=== PATIENT | male | born 1975 | race Caucasian/White ===

== ENCOUNTER 2021-06-09 17:59 | Inpatient (IN) | payer BC, SELFPAY ==
[2021-06-09] VITALS (8 sets, daily range): BP systolic 101–137; BP diastolic 75–82; PULSE 96–108; RESP 24–33; TEMP 37.8–38.1; O2SAT 80–95; BMI 27.8
--- NOTE | 2021-06-09 18:46 | XRR_ITS ---
PROCEDURE INFORMATION: Exam: XR Chest Exam date and time: 06/09/2021 6:46 PM Age: 46 years old Clinical indication: Dyspnea; Additional info: SOB TECHNIQUE: Imaging protocol: XR of the chest. Views: 1 view. COMPARISON: No relevant prior studies available. FINDINGS: Lungs: Patchy airspace opacities in the lung bases, right greater than left. Pleural spaces: Unremarkable. No pleural effusion. No pneumothorax. Heart/Mediastinum: Unremarkable. No cardiomegaly. Bones/joints: Unremarkable. XR/XR chest 1V portable [id number] IMPRESSION: Bibasilar pneumonia versus aspiration.
--- NOTE | 2021-06-09 18:46 | ECG_ITS ---
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 Measurements Intervals [place] Rate: 97 P: 25 FL: 132 QRS: 15 QRSD: 108 T: 18 QT: 344 QTc: 437 Interpretive Statements SINUS RHYTHM No previous ECG available for comparison Electronically Signed On 06-13-2021 9:56:45 CDT by Zari John M.D. [id number]
[2021-06-09] MEDS: dexamethasone 4 mg/mL INJ 6 MG IVP (19:15)
[2021-06-09 19:21] LABS: ABG PCO2 28.1 mmHg (35-45); ABG PH Result 7.54 (7.35-7.45); Arterial Blood Gas Hematocrit 42.7 % (42-52); Base Excess ABG 2.6 mmol/L (-2.0-2.0); Blood Gas Allen Test Pos; Blood Gas Operator Identificat CAK; Blood Gas Sample Site Radial, left; Blood Gas Sample Type Arterial; HCO3 ABG 24.1 mmol/L (22-26); Oxygen Device NRB; PO2 ABG 52.3 mmHg (80.0-100.0)
[2021-06-09 19:25] LABS: Hematocrit 40.3 % (42.0-52.0); Lymphocytes # 0.4 10^3/uL (0.8-4.8); Lymphocytes % 8.5 %; Mean Corpuscular HGB Conc 34.7 g/dL (30.0-36.0); Mean Corpuscular Hemoglobin 30.3 pg (28.0-34.0); Mean Corpuscular Volume 87.2 fL (80-94); Mean Platelet Volume 10.9 fL (7.4-10.4); Monocytes # 0.3 10^3/uL (0.2-0.9); Monocytes % 5.9 %; Neutrophils # 3.91 10^3/uL (1.8-7.7); Neutrophils % 85.2 %; Nucleated Red Blood Cells % 0 %; Platelet Count 240 10^3/cmm (130-400); Red Blood Count 4.62 10^6/uL (4.1-5.3); Red Cell Distribution Width 12.5 % (12.1-15.1); White Blood Count 4.6 10^3/uL (4.0-10.0)
[2021-06-09 19:41] LABS: D Dimer 0.85 ug/mIFEU (0-0.59)
[2021-06-09 19:44] LABS: Lactic Sepsis W/Reflex 1.1 mmol/L (0.5-2.2)
[2021-06-09 19:54] LABS: NT Pro B Type Natriuretic Pept 107 pg/mL (0-125); Procalcitonin 0.43 ng/mL (0-0.5)
[2021-06-09 19:58] LABS: Troponin T (5th) Once 10 ng/L (0-15)
[2021-06-09 20:05] LABS: Alanine Aminotransferase 70 U/L (0-41); Albumin Level 3.8 g/dL (3.5-5.2); Alkaline Phosphatase 108 IU/L (40-130); Anion Gap 18.3 (5-19); Aspartate Amino Transferase 106 U/L (0-40); Blood Urea Nitrogen 8 mg/dL (6-20); C Reactive Protein 256.7 mg/L (0.0-4.9); Calcium 8.1 mg/dL (8.5-10.5); Carbon Dioxide 25 mmol/L (22-29); Chloride 95 mmol/L (98-107); Globulin 2.7 g/dL (1.3-4.6); Glomerular Filtration Rate 122.5 mL/min (90-130); Glucose 102 mg/dL (65-115); Lactate Dehydrogenase 404 U/L (135-225); Osmolality Calculated 279 mOsm/kg (285-295); Potassium 3.3 mmol/L (3.5-5.1); Sodium 135 mmol/L (136-145); Total Bilirubin 0.4 mg/dL (0.15-1.2); Total Protein 6.5 g/dL (6.6-8.7)
--- NOTE | 2021-06-09 21:10 | ED_ITS ---
HPI - COVID General: Chief Complaint: COVID symptoms Stated Complaint: Covid + In Covid Room Time Seen by Provider: 06/09/21 18:16 Triage information: Has fever, cough or shortness of breath . No known COVID + exposure last 14 days History of Present Illness: MD complaint: known COVID positive Prior covid testing: yes, results known COVID 19 common symptoms: positive fever(s), chills, cough, dyspnea, fatigue, body aches, headache(s), nausea and diarrhea; negative vomiting COVID 19 other sytmptoms: negative chest pain Onset (ago): day(s) Severity: severe and slowly worsening Treatment prior to arrival: acetaminophen and ibuprofen COVID Results: No Data to Display Review of Systems Const: Reports: fever(s), chills, body aches and fatigue Card: Denies: chest pain Resp: Reports: dyspnea GI: Reports: nausea and diarrhea; Denies: vomiting Neuro: Reports: headache(s) Physical Exam Const: COMMON NORMALS: patient oriented x3 GENERAL APPEARANCE: cooperative, in distress and ill appearing NUTRITIONAL APPEARANCE: not overweight Eye: COMMON NORMALS: Equal, round and reactive pupils present and EOMs intact bilaterally PUPIL: Yes Equal, round and reactive pupils present Resp: COMMON NORMALS: clear to auscultation bilaterally EFFORT & INSPECTION: Yes tachypneic, Yes labored, Yes retractions and Yes uses accessory muscles AUSCULTATION: clear to auscultation bilaterally and diminished lung sounds Cardio: COMMON NORMALS: regular rhythm RATE: tachycardic RHYTHM: regular rhythm GI: COMMON NORMALS: Normal to inspection, nondistended, normoactive bowel sounds present and Soft to palpation PALPATION: Yes Soft to palpation Extremity: GENERAL: No edema Neuro: LYNNE COMA SCALE: document GCS findings Vilas coma scale eye opening: Spontaneous Vilas coma scale verbal response: Orientated Vilas coma scale motor response: Obey commands Lynne coma scale total score: 15 COMMON NORMALS: patient oriented x3 Course Vital Signs: Vital signs: Vital Signs Temperature 100.1 F H 06/10/21 00:00 Pulse Rate 96 06/10/21 00:00 Respiratory Rate 25 H 06/10/21 00:00 Blood Pressure 132/85 06/10/21 00:00 Pulse Oximetry 94 06/10/21 00:00 MDM - COVID MDM Narrative: Medical decision making narrative: 46-year-old male presents with low oxygen saturations requiring 12 L of nonrebreather oxygen to get his oxygenation into the 90s. He is mildly tachycardic. Normotensive. White blood cell count is 4.6. Potassium 3.3 which will be repleted. He is known positive for COVID-19. He will be admitted for antivirals, steroids, oxygen therapy support chest x-ray shows bilateral pneumonitis. Lab Data: Labs: Lab Results 06/09/21 06/09/21 06/09/21 Range/Units 19:09 19:15 19:15 WBC 4.6 (4.0-10.0) 10^3/ uL RBC 4.62 (4.1-5.3) 10^6/u L Hgb 14.0 (11.7-16.6) g/dL Hct 40.3 L (42.0-52.0) % MCV 87.2 (80-94) fL MCH 30.3 (28.0-34.0) pg MCHC 34.7 (30.0-36.0) g/dL RDW 12.5 (12.1-15.1) % Plt Count 240 (130-400) 10^3/c mm MPV 10.9 H (7.4-10.4) fL Neut % (Auto) 85.2 % Lymph % (Auto) 8.5 % [place] % (Auto) 5.9 % Eos % (Auto) 0.0 % Baso % (Auto) 0.0 % Neut # (Auto) 3.91 (1.8-7.7) 10^3/u L Lymph # (Auto) 0.4 L (0.8-4.8) 10^3/u L [place] # (Auto) 0.3 (0.2-0.9) 10^3/u L Eos # (Auto) 0.0 (0.0-0.8) 10^3/u L Baso # (Auto) 0.0 (0.0-0.1) 10^3/u L Nucleated RBC % (a uto) 0 % Nucleated RBCs # 0.0 /100WBC D-Dimer 0.85 H (0-0.59) ug/mIFE U Specimen Type Arterial Sample Site Radial, left ABG pH 7.54 H (7.35-7.45) ABG pCO2 28.1 L (35-45) mmHg ABG pO2 52.3 L (80.0-100.0) mmH g ABG HCO3 24.1 (22-26) mmol/L ABG Base Excess 2.6 H (-2.0-2.0) mmol/ L Marcelo Test Pos Hematocrit 42.7 (42-52) % O2 Delivery Device Nrb O2 Liters/Min 15.0 % Creative Services Coordinator ID Cak Sodium (136-145) mmol/L Potassium (3.5-5.1) mmol/L Chloride (98-107) mmol/L Carbon Dioxide (22-29) mmol/L Anion Gap (5-19) BUN (6-20) mg/dL Creatinine (0.7-1.2) mg/dL GFR Calculation (90-130) mL/min Glucose (65-115) mg/dL Calculated Osmolal ity (285-295) mOsm/k g Lactic Acid (0.5-2.2) mmol/L Calcium (8.5-10.5) mg/dL Total Bilirubin (0.15-1.2) mg/dL AST (0-40) U/L ALT (0-41) U/L Alkaline Phosphata se (40-130) IU/L Lactate Dehydrogen ase (135-225) U/L Troponin T Gen 5 n g/L (0-15) ng/L C-Reactive Protein (0.0-4.9) mg/L NT-Pro-B Natriuret Pep (0-125) pg/mL Total Protein (6.6-8.7) g/dL Albumin (3.5-5.2) g/dL Globulin (1.3-4.6) g/dL Procalcitonin (0-0.5) ng/mL 06/09/21 06/09/21 06/09/21 Range/Units 19:15 19:15 19:15 WBC (4.0-10.0) 10^3/ uL RBC (4.1-5.3) 10^6/u L Hgb (11.7-16.6) g/dL Hct (42.0-52.0) % MCV (80-94) fL MCH (28.0-34.0) pg MCHC (30.0-36.0) g/dL RDW (12.1-15.1) % Plt Count (130-400) 10^3/c mm MPV (7.4-10.4) fL Neut % (Auto) % Lymph % (Auto) % [place] % (Auto) % Eos % (Auto) % Baso % (Auto) % Neut # (Auto) (1.8-7.7) 10^3/u L Lymph # (Auto) (0.8-4.8) 10^3/u L [place] # (Auto) (0.2-0.9) 10^3/u L Eos # (Auto) (0.0-0.8) 10^3/u L Baso # (Auto) (0.0-0.1) 10^3/u L Nucleated RBC % (a uto) % Nucleated RBCs # /100WBC D-Dimer (0-0.59) ug/mIFE U Specimen Type Sample Site ABG pH (7.35-7.45) ABG pCO2 (35-45) mmHg ABG pO2 (80.0-100.0) mmH g ABG HCO3 (22-26) mmol/L ABG Base Excess (-2.0-2.0) mmol/ L Marcelo Test Hematocrit (42-52) % O2 Delivery Device O2 Liters/Min % Creative Services Coordinator ID Sodium 135 L (136-145) mmol/L Potassium 3.3 L (3.5-5.1) mmol/L Chloride 95 L (98-107) mmol/L Carbon Dioxide 25 (22-29) mmol/L Anion Gap 18.3 (5-19) BUN 8 (6-20) mg/dL Creatinine 0.7 (0.7-1.2) mg/dL GFR Calculation 122.5 (90-130) mL/min Glucose 102 (65-115) mg/dL Calculated Osmolal ity 279 L (285-295) mOsm/k g Lactic Acid 1.1 (0.5-2.2) mmol/L Calcium 8.1 L (8.5-10.5) mg/dL Total Bilirubin 0.4 (0.15-1.2) mg/dL AST 106 H (0-40) U/L ALT 70 H (0-41) U/L Alkaline Phosphata se 108 (40-130) IU/L Lactate Dehydrogen ase 404 H (135-225) U/L Troponin T Gen 5 n g/L 10 (0-15) ng/L C-Reactive Protein 256.7 H (0.0-4.9) mg/L NT-Pro-B Natriuret Pep 107 (0-125) pg/mL Total Protein 6.5 L (6.6-8.7) g/dL Albumin 3.8 (3.5-5.2) g/dL Globulin 2.7 (1.3-4.6) g/dL Procalcitonin 0.43 (0-0.5) ng/mL COVID Results: No Data to Display Discharge Plan Discharge Patient Disposition: Admitted As Inpatient Clinical Impression: Pneumonia due to 2019 novel coronavirus Respiratory failure Qualifiers: Chronicity: acute Respiratory failure complication: hypoxia Qualified Code(s): J96.01 - Acute respiratory failure with hypoxia Condition: Serious Coding Level of Care Code 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 Fwd Exam Detailed
[2021-06-09] MEDS: potassium chloride ER 20 mEq Tablet 40 MEQ PO (22:07)
[2021-06-09] MEDS: remdesivir 200 MG in sodium chloride 0.9% (100 ml) 100 ML 100 MG IV (22:37)
--- NOTE | 2021-06-09 23:02 | CTR_ITS ---
PROCEDURE INFORMATION: Exam: CTA Chest With Contrast Exam date and time: 06/09/2021 11:02 PM Age: 46 years old Clinical indication: Cough and fever and shortness of breath; Patient HX: Covid exposure - fever - cough - SOB; Additional info: Hypoxia TECHNIQUE: Imaging protocol: Computed tomographic angiography of the chest with contrast. 3D rendering (Not supervised by radiologist): MIP and/or 3D reconstructed images were created by the technologist. Radiation optimization: All CT scans at this facility use at least one of these dose optimization techniques: automated exposure control; mA and/or kV adjustment per patient size (includes targeted exams where dose is matched to clinical indication); or iterative reconstruction. Contrast material: OMNI 350; Contrast volume: 78 ml; Contrast route: INTRAVENOUS (IV); COMPARISON: CR (CHEST, ) 06/09/2021 7:28 PM RADIATION DOSE METRICS: Total DLP (mGy-cm): 603.91 FINDINGS: Pulmonary arteries: Normal. No pulmonary emboli. Aorta: Unremarkable. No aortic aneurysm. No aortic dissection. Lungs: Patchy peripheral ground-glass opacities in all lung lobes. Consolidation in the posterior right upper lobe and within both lower lobes. Pleural spaces: Unremarkable. No pneumothorax. No pleural effusion. Heart: Unremarkable. No cardiomegaly. No pericardial effusion. Mediastinal space: Hiatal hernia. Lymph nodes: Prominent mediastinal and hilar lymph nodes are most likely reactive. Liver: Small low-density lesion in the left liver lobe is too small to characterize but is most likely a cyst. No follow-up imaging is recommended. Bones/joints: Unremarkable. No acute fracture. Soft tissues: Unremarkable. CT/CT angio chest PE protcl [id number] IMPRESSION: 1. No evidence for pulmonary embolus. 2. Multilobar ground-glass opacities and consolidations. This pattern is typical of COVID-19 pneumonia but can also be seen with influenza and organizing pneumonia. Radiation Dose CTDIVOL = (mGy): DLP = 603.91 (mGy-cm)
[2021-06-09] MEDS: iohexol 350 mg/mL 100 mL Btl IV (23:30)
[2021-06-10] VITALS (80 sets, daily range): BP systolic 95–144; BP diastolic 61–95; PULSE 71–98; RESP 10–34; TEMP 36.7–38.5; O2SAT 85–99; BMI 28.1
[2021-06-10] MEDS: enoxaparin 40 mg/0.4 mL Syringe SUBCUT ×2 (00:45→22:45)
[2021-06-10] MEDS: famotidine 20 mg/2 mL INJ IVP ×3 (00:45→22:45)
--- NOTE | 2021-06-10 01:15 | PM.HP ---
Providers/Chief Complaint Admitting Physician: Daya Galvan MD Chief Complaint: Covid + In Covid Room History of Present Illness Andrew Fernandez is a 46 year old male tested positive for COVID coming in now ith shortness of breath, cough, worsening during the week 02 sat 70s upon arrival, now on 12lpm NC CT chest and x ray with B/L infiltrates suggestive of COVID pneumonia. No PE noted. Review of Systems General: Reports: 10 or more systems reviewed and unremarkable except in HPI and below Const: Denies: fever(s), chills or body aches Eyes: Denies: change in vision, blurry vision or photophobia ENMT: Reports: hoarseness; Denies: throat pain, enlarged tonsils, odynophagia or nasal congestion Card: Denies: chest pain, palpitations, irregular heart rhythm, edema, swelling of feet/ankles, lightheadedness, pre-syncope, dyspnea on exertion or orthopnea Resp: Denies: dyspnea, productive cough, non-productive cough, wheezing, stridor, pain on inspiration, change in phlegm color, hemoptysis or chest congestion GI: Denies: abdominal pain, nausea, vomiting, hematemesis, coffee ground emesis, dysphagia, heartburn, diarrhea, constipation, GI cramping, change in stool character, hematochezia or melena : Denies: flank pain, dysuria, urinary frequency, urinary urgency, urinary hesitancy or hematuria Musc: Denies: neck pain, back pain, extremity pain, joint swelling, joint warmth or deformity Neuro: Denies: headache(s), numbness in extremities, weakness in extremities, sensory changes, difficulty walking, frequent falls, dizziness, vertigo, behavioral changes, Slurred speech present or seizure-like activity Psych: Denies: anxiety, depression, suicidal ideation or homicidal ideation Endo: Denies: polyuria, polydipsia, tired all the time, cold intolerance or hot flashes Dariel/Lymph: Denies: easy bruising or easy bleeding Medications/Allergies Allergies Allergy/AdvReac Type Severity Reaction Status Date / Time No Known Allergies Allergy Verified 06/09/21 18:16 Vitals/I&O/Wt Last Vital Signs Temp 100.1 F H 06/10/21 00:00 Pulse 96 06/10/21 00:00 Resp 25 H 06/10/21 00:00 BP 132/85 06/10/21 00:00 Pulse Ox 94 06/10/21 00:00 Weight last 48 hrs Weight 90.718 kg Physical Exam Narrative: EXAM NARRATIVE: General: No acute distress,tachypnea+, AO x3 HEENT: PERRLA, pupils bilaterally equal and reactive, pallors not present Chest: Normal vesicular breath sounds, no added sounds, equal good air entry bilaterally CVS: S1-S2 regular, no murmurs, no tachycardia, no gallops, no rubs Abdomen: Soft, nontender, no organomegaly, bowel sounds present Neuro: No focal deficits, no facial deformity, AO x3, power 5/5 in all limbs Data : 06/09/21 19:15 06/09/21 19:15 Micro: Microbiology 06/09/21 19:55 Blood Culture - Preliminary Blood SPECIMEN COLLECTED 06/09/21 19:15 Blood Culture - Preliminary Blood SPECIMEN COLLECTED A&P Assessment and plan (1) Respiratory failure: Status: Acute Qualifiers: Chronicity: acute Respiratory failure complication: hypoxia Qualified Code(s): J96.01 - Acute respiratory failure with hypoxia (2) Pneumonia due to 2019 novel coronavirus: Status: Acute Additional A&P Information Remdisivir 200mg iv x 1 followed by 100mg iv daily dexamethasone 6mg IVP daily duoneb q6h, budesonide q12h empiric CTX and azithromycin Flutter valve/spirometer at bedside trend inflammatory markers including CRP, LDH, D dimer, Ferritin CTA PE to evalaute for PE negative for the same DVt ppx: lovenox PUD ppx: protonix Attestations Medical Necessity Statement*: >2midnight anticipated for above defined care Coding Level of Care Code 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
[2021-06-10] MEDS: acetaminophen 325 mg Tablet 650 MG PO (04:03)
[2021-06-10] MEDS: cefTRIAXone 1,000 MG in sodium chloride 0.9% (plus) 50 ML 100 MG IV (04:31)
[2021-06-10] MEDS: azithromycin 500 MG in sodium chloride 0.9% 250 ML 250 MG IV (04:59)
--- NOTE | 2021-06-10 05:49 | PC.NURSE ---
Patient arrived to ICU from ED at 0353. Non rebreather at 15L. Continue care
--- NOTE | 2021-06-10 06:02 | PM.CONSULT ---
Providers/Reason For Consult Consulting Physician/Specialty*: Pulmonary critical care medicine Reason for Consult*: Severe COVID-19 pneumonia Attending Physician: Daya Galvan MD History of Present Illness History of Present Illness Andrew Fernandez is a 46 year old male who presented to the hospital with severe shortness of breath. The patient is a known positive case for COVID-19. In the emergency department, the patient was found to be hypoxic requiring nonrebreather mask to achieve adequate oxygenation. He underwent a CT angiogram of his chest which did not reveal any pulmonary embolism however the patient has diffuse bilateral infiltrates including dense consolidative lesion in bilateral lower lobes. He has received dexamethasone and has been started on remdesivir. He is currently empirically covered with ceftriaxone and azithromycin. The patient has absolute lymphocyte count less than thousand, elevated inflammatory markers including CRP, LDH, D-dimer. His arterial blood gas revealed respiratory alkalosis with severe hypoxia on 15 L on breather mask. The patient was seen and examined in the ICU. He is on nonrebreather mask resting comfortably. Review of Systems Narrative: The patient complains of generalized fatigue and shortness of breath. He has cough with minimal sputum production. No nausea vomiting or diarrhea. Meds/Allergies Home Medications and Allergies Home Medications Medication Instructions Recorded Confirmed Last Taken Type acetaminophen [Tylenol] 325 mg PO QID PRN 06/10/21 06/10/21 Unknown History ascorbic acid (vitamin C) [Vitamin 500 mg PO DAILY 06/10/21 06/10/21 06/09/21 History C] elderberry fruit [Elderberry] 200 mg PO DAILY 06/10/21 06/10/21 06/09/21 History ibuprofen 200 mg PO Q6H PRN 06/10/21 06/10/21 Unknown History Allergies Allergy/AdvReac Type Severity Reaction Status Date / Time No Known Allergies Allergy Verified 06/09/21 18:16 Current Medications Current Medications Generic Name Dose Route Start Last Admin Trade Name Freq PRN Reason Stop Dose Admin Acetaminophen 650 mg 06/09/21 23:20 06/10/21 04:03 Acetaminophen 325 Mg Tablet PO 650 mg Q6H PRN Administration Mild/Mod Pain Or Temp >/= 101 Dexamethasone 6 mg 06/10/21 03:59 06/10/21 04:08 Dexamethasone 4 Mg/Ml Inj IVP Not Given Q24H [facility] Enoxaparin Sodium 40 mg 06/09/21 23:30 06/10/21 00:45 Enoxaparin 40 Mg/0.4 Ml Syringe SUBCUT 40 mg Q24H JOANIE Administration Famotidine 20 mg 06/09/21 23:30 06/10/21 00:45 Famotidine 20 Mg/2 Ml Inj IVP 20 mg Q12H JOANIE Administration Ceftriaxone Sodium 1,000 mg/ 50 mls @ 100 mls/hr 06/10/21 04:00 06/10/21 05:09 Sodium Chloride IV Infused Q24H JOANEI Infusion Protocol Azithromycin 500 mg/ Sodium 250 mls @ 250 mls/hr 06/10/21 04:30 06/10/21 04:59 Chloride IV 06/13/21 04:29 250 mls/hr Q24H JOANIE Administration Protocol Vitals/I&O/Wt Last Vital Signs Temp 101.3 F H 06/10/21 04:00 Pulse 80 06/10/21 05:45 Resp 26 H 06/10/21 05:45 BP 118/80 06/10/21 05:45 Pulse Ox 94 06/10/21 05:45 06/09/21 06/09/21 06/10/21 14:59 22:59 06:59 Intake Total 230 / 230 Balance 230 / 230 Weight last 48 hrs Weight 201 lb 9 oz Weight 201 lb 14.4 oz Weight 200 lb Data Labs: Other Labs: I have reviewed his laboratory, microbiologic and radiologic data. The patient has mild hypokalemia he has received potassium supplementation for that. His inflammatory markers are elevated. Micro: Micro: Microbiology 06/09/21 19:55 Blood Culture - Pr eliminary Blood [facility] 06/09/21 19:15 Blood Culture - Pr eliminary Blood [facility] Other Data: Attestation for Other Data: I personally reviewed and interpreted the following: Other data: Laboratory, microbiologic and radiologic data. A&P Assessment and plan (1) Pneumonia due to 2019 novel coronavirus: This is a 46-year-old young man without any significant past medical history who is presented with severe SARS-CoV-2 pneumonia. There is bilateral infiltrate on the CT angiogram of the chest including consolidative changes in bilateral lower lobes in addition to groundglass opacities in upper lobes. His inflammatory markers are elevated including laboratory values that are associated with disease progression and worse outcomes. He is absolutely lymphocyte count is less than thousand he has elevated LDH, CRP. The patient is now empirically covered with ceftriaxone and azithromycin. He is receiving remdesivir and low-dose dexamethasone daily. He is currently requiring 15 L nonrebreather mask to maintain adequate oxygenation. Given his level of hypoxia, elevated inflammatory markers, the patient will benefit from anti-IL-6 therapy. I am going to prescribe that for the patient. Status: Acute (2) Acute respiratory failure with hypoxia: Currently on nonrebreather mask. I will likely switch this to high flow nasal cannula which will provide assistance. Reducing work of breathing. He is on DuoNeb and Pulmicort nebulization. There is some data, budesonide nebulization may help patients with COVID-19 pneumonia. We will continue with that for now. The patient is on DVT prophylaxis with 40 mg of Lovenox. Status: Acute (3) Hypokalemia: Patient has received 60 mEq of potassium. 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
[2021-06-10 06:53] LABS: Hematocrit 39.4 % (42.0-52.0); Hemoglobin 13.4 g/dL (11.7-16.6); Lymphocytes # 0.4 10^3/uL (0.8-4.8); Lymphocytes % 10.6 %; Mean Corpuscular Hemoglobin 29.9 pg (28.0-34.0); Mean Corpuscular Volume 87.9 fL (80-94); Mean Platelet Volume 10.7 fL (7.4-10.4); Monocytes # 0.2 10^3/uL (0.2-0.9); Neutrophils # 3.06 10^3/uL (1.8-7.7); Neutrophils % 82.9 %; Nucleated Red Blood Cells % 0 %; Platelet Count 229 10^3/cmm (130-400); Red Blood Count 4.48 10^6/uL (4.1-5.3); Red Cell Distribution Width 12.6 % (12.1-15.1); White Blood Count 3.7 10^3/uL (4.0-10.0)
[2021-06-10 07:31] LABS: Alanine Aminotransferase 73 U/L (0-41); Albumin Level 3.2 g/dL (3.5-5.2); Alkaline Phosphatase 98 IU/L (40-130); Anion Gap 15.8 (5-19); Aspartate Amino Transferase 107 U/L (0-40); Blood Urea Nitrogen 9 mg/dL (6-20); Calcium 8.2 mg/dL (8.5-10.5); Carbon Dioxide 23 mmol/L (22-29); Chloride 100 mmol/L (98-107); Globulin 3.6 g/dL (1.3-4.6); Glomerular Filtration Rate 122.5 mL/min (90-130); Glucose 124 mg/dL (65-115); Osmolality Calculated 280 mOsm/kg (285-295); Potassium 3.8 mmol/L (3.5-5.1); Sodium 135 mmol/L (136-145); Total Bilirubin 0.3 mg/dL (0.15-1.2); Total Protein 6.8 g/dL (6.6-8.7)
[2021-06-10 07:33] LABS: C Reactive Protein 227.7 mg/L (0.0-4.9)
[2021-06-10] MEDS: ipratropium-albuterol 3 mL Neb INHALATION ×3 (08:15→20:05)
[2021-06-10] MEDS: budesonide 0.5 mg/2 mL Neb INHALATION ×2 (08:15→19:47)
[2021-06-10] MEDS: potassium chloride ER 20 mEq Tablet PO (08:53)
--- NOTE | 2021-06-10 15:12 | PM.PN ---
Subjective Subjective: Interval history: Patient was examined this afternoon, he sitting up in bed, on 45 L, 85% FiO2, he denies a history of smoking, no history of lung disease, no history of heart disease, no history of strokes, he is 46, he tells me that he has 3 children, oldest of being 17, he tells me that the Covid really hit him hard, he is feeling quite short of breath, no chest pain, no lightheadedness, dizziness Vitals/I&O/Wt Last Vital Signs Temp 98.1 F 06/10/21 07:00 Pulse 97 06/10/21 14:49 Resp 18 06/10/21 14:00 BP 128/78 06/10/21 14:00 Pulse Ox 90 06/10/21 14:00 06/10/21 06/10/21 06/10/21 06:59 14:59 22:59 Intake Total 480 / 480 396.5 / 396.5 Output Total 1000 / 1000 Balance 480 / 480 -603.5 / -603.5 Weight last 48 hrs Weight 91.427 kg Weight 91.58 kg Weight 90.718 kg Data : 06/10/21 06:40 06/10/21 06:40 Micro: Microbiology 06/09/21 19:55 Blood Culture - Preliminary Blood SPECIMEN COLLECTED 06/09/21 19:15 Blood Culture - Preliminary Blood SPECIMEN COLLECTED A&P Assessment and plan (1) Respiratory failure: Status: Acute Qualifiers: Chronicity: acute Respiratory failure complication: hypoxia Qualified Code(s): J96.01 - Acute respiratory failure with hypoxia (2) Pneumonia due to 2019 novel coronavirus: Status: Acute Additional A&P Information Remdisivir 200mg iv x 1 followed by 100mg iv daily dexamethasone 6mg IVP daily duoneb q6h, budesonide q12h empiric CTX and azithromycin Flutter valve/spirometer at bedside trend inflammatory markers including CRP, LDH, D dimer, Ferritin CTA PE to evalaute for PE negative for the same Patient will discuss with mom and his family friend to discuss, to determine who will be his DPOA or who will make decisions for him if he cannot as his 3 children are under the age of 18 DVt ppx: lovenox PUD ppx: protonix Attestations Medical Necessity Statement*: Patient requires hospitalization due to acute respiratory failure secondary COVID-19 pneumonia Coding Level of Care Code 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
[2021-06-10] MEDS: remdesivir 100 MG in sodium chloride 0.9% (100 ml) 100 ML IV (18:57)
[2021-06-11] VITALS (78 sets, daily range): BP systolic 95–135; BP diastolic 60–79; PULSE 55–103; RESP 15–36; TEMP 36.4–37.3; O2SAT 88–99; BMI 28.0
[2021-06-11] MEDS: ipratropium-albuterol 3 mL Neb INHALATION ×4 (03:01→20:56)
[2021-06-11] MEDS: dexamethasone 4 mg/mL INJ 6 MG IVP (03:23)
[2021-06-11] MEDS: cefTRIAXone 1,000 MG in sodium chloride 0.9% (plus) 50 ML 100 MG IV (03:23)
[2021-06-11] MEDS: azithromycin 500 MG in sodium chloride 0.9% 250 ML 250 MG IV (04:02)
[2021-06-11 04:57] LABS: ABG PCO2 34.8 mmHg (35-45); ABG PH Result 7.46 (7.35-7.45); Base Excess ABG 1.1 mmol/L (-2.0-2.0); Blood Gas Allen Test Pos; Blood Gas Operator Identificat JB; Blood Gas Sample Site Radial, left; Blood Gas Sample Type Arterial; HCO3 ABG 24.6 mmol/L (22-26); Oxygen Device HAG; PO2 ABG 76.4 mmHg (80.0-100.0)
[2021-06-11 06:25] LABS: Basophils % 0.3 %; Hematocrit 38.5 % (42.0-52.0); Hemoglobin 12.9 g/dL (11.7-16.6); Lymphocytes # 0.4 10^3/uL (0.8-4.8); Lymphocytes % 10.7 %; Mean Corpuscular HGB Conc 33.5 g/dL (30.0-36.0); Mean Corpuscular Hemoglobin 29.7 pg (28.0-34.0); Mean Corpuscular Volume 88.5 fL (80-94); Monocytes # 0.3 10^3/uL (0.2-0.9); Monocytes % 9.9 %; Neutrophils # 2.63 10^3/uL (1.8-7.7); Neutrophils % 78.5 %; Nucleated Red Blood Cells % 0 %; Platelet Count 310 10^3/cmm (130-400); Red Blood Count 4.35 10^6/uL (4.1-5.3); White Blood Count 3.4 10^3/uL (4.0-10.0)
[2021-06-11 06:31] LABS: Lactate (Lactic Acid level) 2.6 mmol/L (0.5-2.2)
[2021-06-11 06:40] LABS: INR 0.96 (0.8-1.2)
[2021-06-11 06:56] LABS: NT Pro B Type Natriuretic Pept 128 pg/mL (0-125); Procalcitonin 0.45 ng/mL (0-0.5)
--- NOTE | 2021-06-11 07:00 | XRR_ITS ---
PROCEDURE INFORMATION: Exam: XR Chest Exam date and time: 06/11/2021 7:00 AM Age: 46 years old Clinical indication: Dyspnea; Additional info: SOB TECHNIQUE: Imaging protocol: XR of the chest. Views: 1 view. COMPARISON: CR (CHEST, ) 06/09/2021 7:28 PM FINDINGS: Lungs: Asymmetric bibasilar airspace disease, which has mildly worsened when compared to the. Study. Pleural spaces: No significant pleural effusion. Heart/Mediastinum: No cardiomegaly. Bones/joints: Unremarkable. XR/XR chest 1V portable [id number] IMPRESSION: Asymmetric bibasilar airspace disease, which has mildly worsened when compared to the. Study.
[2021-06-11 07:04] LABS: Alanine Aminotransferase 93 U/L (0-41); Albumin Level 3.1 g/dL (3.5-5.2); Alkaline Phosphatase 90 IU/L (40-130); Anion Gap 15.7 (5-19); Aspartate Amino Transferase 125 U/L (0-40); Blood Urea Nitrogen 14 mg/dL (6-20); C Reactive Protein 87.2 mg/L (0.0-4.9); Calcium 8.2 mg/dL (8.5-10.5); Carbon Dioxide 22 mmol/L (22-29); Chloride 104 mmol/L (98-107); Globulin 3.3 g/dL (1.3-4.6); Glomerular Filtration Rate 122.5 mL/min (90-130); Glucose 128 mg/dL (65-115); Magnesium 2.1 mg/dL (1.7-2.3); Osmolality Calculated 288 mOsm/kg (285-295); Phosphorus 2.6 mg/dL (2.5-4.5); Potassium 3.7 mmol/L (3.5-5.1); Sodium 138 mmol/L (136-145); Total Bilirubin 0.2 mg/dL (0.15-1.2); Total Protein 6.4 g/dL (6.6-8.7)
[2021-06-11 07:07] LABS: Creatine Phosphokinase 67 U/L (39-308)
--- NOTE | 2021-06-11 07:14 | P.PN_ITS ---
Subjective Subjective: Interval history: The patient was seen and examined in the ICU. He had an uneventful night. The patient has been doing fairly well. He has been self proning. His oxygen requirement is coming down. Currently the patient is on an FiO2 of 65% his sats been 97% this morning. Chest x-ray from this morning revealed bilateral infiltrate. The patient has evidence of dense consolidation in the right lower lobe. Medications: Reviewed: Yes Vitals/I&O/Wt Last Vital Signs Temp 98.7 F 06/11/21 06:00 Pulse 95 06/11/21 06:00 Resp 25 H 06/11/21 06:00 BP 119/72 06/11/21 06:00 Pulse Ox 94 06/11/21 06:00 06/10/21 06/11/21 06/11/21 22:59 06:59 14:59 Intake Total 580 / 976.5 50 / 1026.5 Output Total 850 / 1850 Balance -270 / -873.5 50 / -823.5 Weight last 48 hrs Weight 201 lb 9 oz Weight 201 lb 9 oz Weight 201 lb 14.4 oz Weight 200 lb Physical Exam 2 Narrative: EXAM NARRATIVE: General: Patient is awake alert and oriented, in no distress Neck: No JVD, no cervical or supraclavicular lymphadenopathy Respiratory: Auscultation: Reduced breath sound bilaterally, increased vocal resonance bilaterally, especially in the posterior lateral chest, no wheezing or rhonchi Cardiovascular: Regular rate and rhythm, S1-S2 present, no murmur, no peripheral edema. Abdomen: Soft, nontender, nondistended, positive bowel sound Musculoskeletal: No obvious joint deformity Skin: No rash Neuro: Mental status is normal, no gross cranial nerve deficit, normal motor and coordination. Data : 06/11/21 05:26 06/11/21 05:26 Micro: Microbiology 06/09/21 19:55 Blood Culture - Preliminary Blood NEGATIVE TO DATE 06/09/21 19:15 Blood Culture - Preliminary Blood NEGATIVE TO DATE Attestation for Other Data: I personally reviewed and interpreted the following: Other data: I have reviewed his laboratory, microbiologic and radiologic data A&P Assessment and plan (1) Pneumonia due to 2019 novel coronavirus: This is a 46-year-old young man without any significant past medical history who is presented with severe SARS-CoV-2 pneumonia. There is bilateral infiltrate on the CT angiogram of the chest including consolidative changes in bilateral lower lobes in addition to groundglass opacities in upper lobes. His inflammatory markers are elevated including laboratory values that are associated with disease progression and worse outcomes. He is absolutely lymphocyte count is less than thousand he has elevated LDH, CRP. The patient is now empirically covered with ceftriaxone and azithromycin. He is receiving remdesivir and low-dose dexamethasone daily. He has received Tocilizumab on 06/10/ 06/10/21 His oxygen requirement is slowly coming down. I am hoping to transfer the patient out to the floor later today or tomorrow. Status: Acute (2) Acute respiratory failure with hypoxia: He is on DuoNeb and Pulmicort nebulization. There is some data, budesonide nebulization may help patients with COVID-19 pneumonia. We will continue with that for now. The patient is on DVT prophylaxis with 40 mg of Lovenox. Status: Acute (3) Hypokalemia: Resolved Status: Acute Attestations Medical Necessity Statement*: Will defer to the primary team Coding Level of Care Code Acute Respiratory Services Manager for [facility] Diagnoses Pneumonia due to 2019 novel coronavirus U07.1; J12.82 Acute respiratory failure with hypoxia J96.01 Hypokalemia E87.6 Time Spent (min) 33
[2021-06-11] MEDS: budesonide 0.5 mg/2 mL Neb INHALATION ×2 (08:22→20:56)
--- NOTE | 2021-06-11 09:34 | PC.CHAP ---
Pastoral Care Encounter/Spiritual Assessment Type of Contact [] Declined barrelhead inspector visit [] Patient/Family/Request visit [] Outpatient visit [] Follow-up visit [] Physician referral [] Code/Alert [x] Routine visit [] Staff referral [] Actively dying [] Patient sleeping [] Family support [] [] Out of room [] Palliative care [] [] Receiving care in room [] Pre-surgical visit [] Trauma [] Long length of stay [x] ICU visit [] Other: Relational/Emotional Strength [] Patient feels connected with others/family/visitors/staff [] Distress [] Loneliness/isolation [] Abandonment Spirituality of Patient [] Person of Lana [] Attends Hoahaoism of their Lana [] Believes in Prayer [] Reads Bible or Methodist materials [] There are Spiritual issues to be addressed Employee Relations Advisor Interventions [x] Prayer [] Active listening [] Non-anxious presence [] Spiritual/emotional support [] Crisis/trauma care [] Spiritual counseling [] Bereavement support [] Provided bereavement packet [] Provided Bible/devotional materials [] Provided toy/stuffed animal, coloring book to patient or family member [] Provided Communion [] Anointing/[place] [] Salvation [x] Completed spiritual assessment [] Other: Impact on Illness or Injury [] Angry [] Fearful [] Anxious [] Often cries [] Exhaustion [] Unable to work [] Unable to attend tenriism [] Unable to walk/stand [] Unable to read [] Unable to drive [] Unable to eat/drink [] Unable to sleep [] Unable to be with family [] Patient intubated [] Other: Summary Time spent with patient
[2021-06-11] MEDS: famotidine 20 mg/2 mL INJ IVP ×2 (11:54→23:34)
--- NOTE | 2021-06-11 11:59 | PC.NURSE ---
Prone Patient educated on proning. Patient doing very well in prone position. HFNC 45L 55%, down from 45L 85% this morning.
--- NOTE | 2021-06-11 12:47 | PM.PN ---
Subjective Subjective: Interval history: Patient was examined this morning he is lying prone, he tells me that he is breathing better, no fevers overnight, no nausea, no vomiting, no chest pain, no shortness of breath, Vitals/I&O/Wt Last Vital Signs Temp 99.0 F 06/11/21 08:00 Pulse 72 06/11/21 08:28 Resp 24 H 06/11/21 08:28 BP 104/60 06/11/21 07:00 Pulse Ox 98 06/11/21 08:28 06/10/21 06/11/21 06/11/21 22:59 06:59 14:59 Intake Total 580 / 976.5 50 / 1026.5 490 / 490 Output Total 850 / 1850 500 / 500 Balance -270 / -873.5 50 / -823.5 -10 / -10 Weight last 48 hrs Weight 91.427 kg Weight 91.427 kg Weight 91.58 kg Weight 90.718 kg Physical Exam Const: COMMON NORMALS: no acute distress and patient oriented x3 Resp: COMMON NORMALS: normal respiratory effort, No retractions and No use of accessory muscles AUSCULTATION: diminished lung sounds diffuse Cardio: COMMON NORMALS: regular rate, regular rhythm, S1 normal heart sound present and S2 normal heart sound present RATE: regular rate RHYTHM: regular rhythm HEART SOUNDS: S1 normal heart sound present and S2 normal heart sound present GI: COMMON NORMALS: Normal to inspection, nondistended, normoactive bowel sounds present, Soft to palpation and non-tender PALPATION: Yes Soft to palpation Extremity: COMMON NORMALS: no pedal edema Neuro: COMMON NORMALS: patient oriented x3 Psych: COMMON NORMALS: mental status grossly normal Data : 06/11/21 05:26 06/11/21 05:26 Micro: Microbiology 06/09/21 19:55 Blood Culture - Preliminary Blood NEGATIVE TO DATE 06/09/21 19:15 Blood Culture - Preliminary Blood NEGATIVE TO DATE A&P Assessment and plan (1) Respiratory failure: Status: Acute Qualifiers: Chronicity: acute Respiratory failure complication: hypoxia Qualified Code(s): J96.01 - Acute respiratory failure with hypoxia (2) Pneumonia due to 2019 novel coronavirus: Status: Acute Additional A&P Information Remdisivir 200mg iv x 1 followed by 100mg iv daily Status post 1 dose of tocilizumab 06/10/2021 dexamethasone 6mg IVP daily duoneb q6h, budesonide q12h Continue high flow, wean as tolerated empiric CTX and azithromycin Flutter valve/spirometer at bedside trend inflammatory markers including CRP, LDH, D dimer, Ferritin CTA PE to evalaute for PE negative for the same Encourage prone positioning, pulmonary toilet Patient's decision-maker is his friend, Jajaryan Rose Plan for today, continue Decadron, nausea, antibiotics, de-escalate to Covid unit DVt ppx: lovenox PUD ppx: protonix Attestations Medical Necessity Statement*: Patient requires hospitalization due to COVID-19 pneumonia Coding Level of Care Code Acute Bitumastic Applier for [facility] Fwd Diagnoses Respiratory failure J96.01 Chronicity: acute Respiratory failure complication: hypoxia Pneumonia due to 2019 novel coronavirus U07.1; J12.82
--- NOTE | 2021-06-11 13:50 | PC.NURSE ---
Report called to 2AWhitley RN, no further questions. Patient placed on 15L non-rebreather and transferred to 2A via bed, belongings with patient. Family updated on status and transfer. Patient AAOx4, VSS on 15L NRB.
[2021-06-11] MEDS: remdesivir 100 MG in sodium chloride 0.9% (100 ml) 100 ML IV (18:44)
[2021-06-11] MEDS: enoxaparin 40 mg/0.4 mL Syringe SUBCUT (23:34)
[2021-06-12] VITALS (16 sets, daily range): BP systolic 108–136; BP diastolic 66–80; PULSE 67–94; RESP 15–22; TEMP 36.4–36.7; O2SAT 89–98
[2021-06-12] MEDS: ipratropium-albuterol 3 mL Neb INHALATION ×4 (03:29→20:09)
[2021-06-12] MEDS: cefTRIAXone 1,000 MG in sodium chloride 0.9% (plus) 50 ML 100 MG IV (04:08)
[2021-06-12] MEDS: dexamethasone 4 mg/mL INJ 6 MG IVP (04:09)
[2021-06-12] MEDS: azithromycin 500 MG in sodium chloride 0.9% 250 ML 250 MG IV (05:20)
--- NOTE | 2021-06-12 07:21 | PC.NURSE ---
Patient remains in bed, prones and supine himself. Remains on HHF 45L/55%. Nil distress noted. Labs taken this am. Observation continues.
[2021-06-12 07:40] LABS: Hematocrit 39.9 % (42.0-52.0); Hemoglobin 13.1 g/dL (11.7-16.6); Lymphocytes # 0.5 10^3/uL (0.8-4.8); Lymphocytes % 13.1 %; Mean Corpuscular HGB Conc 32.8 g/dL (30.0-36.0); Mean Corpuscular Hemoglobin 29.6 pg (28.0-34.0); Mean Corpuscular Volume 90.3 fL (80-94); Mean Platelet Volume 10.8 fL (7.4-10.4); Monocytes # 0.4 10^3/uL (0.2-0.9); Monocytes % 12.2 %; Neutrophils % 73.8 %; Nucleated Red Blood Cells % 0 %; Platelet Count 357 10^3/cmm (130-400); Red Blood Count 4.42 10^6/uL (4.1-5.3); Red Cell Distribution Width 13.2 % (12.1-15.1); White Blood Count 3.5 10^3/uL (4.0-10.0)
[2021-06-12 08:06] LABS: Alanine Aminotransferase 205 U/L (0-41); Albumin Level 3.5 g/dL (3.5-5.2); Alkaline Phosphatase 98 IU/L (40-130); Anion Gap 16.2 (5-19); Aspartate Amino Transferase 242 U/L (0-40); Blood Urea Nitrogen 15 mg/dL (6-20); Calcium 8.7 mg/dL (8.5-10.5); Carbon Dioxide 25 mmol/L (22-29); Chloride 102 mmol/L (98-107); Globulin 3.2 g/dL (1.3-4.6); Glomerular Filtration Rate 122.5 mL/min (90-130); Glucose 98 mg/dL (65-115); Magnesium 2.1 mg/dL (1.7-2.3); Osmolality Calculated 289 mOsm/kg (285-295); Phosphorus 3.1 mg/dL (2.5-4.5); Potassium 4.2 mmol/L (3.5-5.1); Sodium 139 mmol/L (136-145); Total Bilirubin 0.3 mg/dL (0.15-1.2); Total Protein 6.7 g/dL (6.6-8.7)
[2021-06-12 08:17] LABS: Slide Review Slide Review Perform
[2021-06-12] MEDS: budesonide 0.5 mg/2 mL Neb INHALATION ×2 (08:40→19:48)
--- NOTE | 2021-06-12 09:52 | PC.CHAP ---
Pastoral Care Encounter/Spiritual Assessment Type of Contact [] Declined power marketer visit [] Patient/Family/Request visit [] Outpatient visit [] Follow-up visit [] Physician referral [] Code/Alert [x] Routine visit [] Staff referral [] Actively dying [x] Patient sleeping [] Family support [] [] Out of room [] Palliative care [] [] Receiving care in room [] Pre-surgical visit [] Trauma [] Long length of stay [] ICU visit [x] Other:oxygen Relational/Emotional Strength [] Patient feels connected with others/family/visitors/staff [] Distress [] Loneliness/isolation [] Abandonment Spirituality of Patient [] Person of Lana [] Attends Catholic of their Lana [] Believes in Prayer [] Reads Bible or Confucianist materials [] There are Spiritual issues to be addressed Automotive Refinisher Interventions [x] Prayer [] Active listening [] Non-anxious presence [] Spiritual/emotional support [] Crisis/trauma care [] Spiritual counseling [] Bereavement support [] Provided bereavement packet [] Provided Bible/devotional materials [] Provided toy/stuffed animal, coloring book to patient or family member [] Provided Communion [] Anointing/[place] [] Salvation [x] Completed spiritual assessment [] Other: Impact on Illness or Injury [] Angry [] Fearful [] Anxious [] Often cries [] Exhaustion [] Unable to work [] Unable to attend tenriism [] Unable to walk/stand [] Unable to read [] Unable to drive [] Unable to eat/drink [] Unable to sleep [] Unable to be with family [] Patient intubated [] Other: Summary Time spent with patient
[2021-06-12] MEDS: FUROsemide 10 mg/mL SDV 2mL 20 MG IVP (12:16)
[2021-06-12] MEDS: famotidine 20 mg/2 mL INJ IVP ×2 (12:16→22:44)
--- NOTE | 2021-06-12 12:51 | PC.NURSE ---
patients friend Willard Fernandez called for update. updated given on patient condition and oxygen %
--- NOTE | 2021-06-12 13:37 | PM.PN ---
Subjective Subjective: Interval history: Patient was seen this morning, he is a bit anxious, but tells me that overall he is doing better, has intermittent episodes of shortness of breath, he is down to 45 L 55% FiO2 Vitals/I&O/Wt Last Vital Signs Temp 97.5 F L 06/12/21 12:00 Pulse 68 06/12/21 12:00 Resp 18 06/12/21 12:00 BP 108/66 06/12/21 12:00 Pulse Ox 91 06/12/21 12:00 06/11/21 06/12/21 06/12/21 22:59 06:59 14:59 Intake Total 220 / 710 620 / 1330 Output Total 280 / 780 Balance 220 / 210 340 / 550 Weight last 48 hrs Weight 96.162 kg Weight 91.427 kg Physical Exam Const: COMMON NORMALS: no acute distress and patient oriented x3 Resp: COMMON NORMALS: normal respiratory effort, No retractions, No use of accessory muscles and clear to auscultation bilaterally AUSCULTATION: clear to auscultation bilaterally Cardio: COMMON NORMALS: regular rate, regular rhythm, S1 normal heart sound present and S2 normal heart sound present RATE: regular rate RHYTHM: regular rhythm HEART SOUNDS: S1 normal heart sound present and S2 normal heart sound present GI: COMMON NORMALS: Normal to inspection, nondistended, normoactive bowel sounds present, Soft to palpation and non-tender PALPATION: Yes Soft to palpation Extremity: COMMON NORMALS: no pedal edema Neuro: COMMON NORMALS: patient oriented x3 Psych: COMMON NORMALS: mental status grossly normal Data : 06/12/21 06:18 06/12/21 06:18 A&P Assessment and plan (1) Respiratory failure: Status: Acute Qualifiers: Chronicity: acute Respiratory failure complication: hypoxia Qualified Code(s): J96.01 - Acute respiratory failure with hypoxia (2) Pneumonia due to 2019 novel coronavirus: Status: Acute Additional A&P Information Remdisivir 200mg iv x 1 followed by 100mg iv daily Status post 1 dose of tocilizumab 06/10/2021 dexamethasone 6mg IVP daily duoneb q6h, budesonide q12h Continue high flow, wean as tolerated empiric CTX and azithromycin Flutter valve/spirometer at bedside trend inflammatory markers including CRP, LDH, D dimer, Ferritin CTA PE to evalaute for PE negative for the same Encourage prone positioning, pulmonary toilet Klonopin as needed for anxiety Patient's decision-maker is his friend, Jaja Rose Plan for today, continue Decadron, remdesivir, Klonopin for anxiety, continue to clinically monitor DVt ppx: lovenox PUD ppx: protonix Attestations Medical Necessity Statement*: Patient requires hospitalization due to COVID-19 pneumonia Coding Level of Care Code Acute Steam Generating Powerplant Mechanic for [facility] Diagnoses Respiratory failure J96.01 Chronicity: acute Respiratory failure complication: hypoxia Pneumonia due to 2019 novel coronavirus U07.1; J12.82
--- NOTE | 2021-06-12 16:21 | PC.NURSE ---
Rounding Note Pt using IS and performing bed exercises.
[2021-06-12] MEDS: remdesivir 100 MG in sodium chloride 0.9% (100 ml) 100 ML IV (17:35)
--- NOTE | 2021-06-12 18:39 | PC.NURSE ---
Pt has rested in bed and sat on side of bed throughout shift. Maintaining 90% oxygen saturations on 45 L 50% heated high flow. No needs at this time.
[2021-06-12] MEDS: enoxaparin 40 mg/0.4 mL Syringe SUBCUT (22:44)
[2021-06-13] VITALS (17 sets, daily range): BP systolic 122–144; BP diastolic 62–84; PULSE 67–100; RESP 15–22; TEMP 36.5–36.8; O2SAT 91–98
[2021-06-13] MEDS: cefTRIAXone 1,000 MG in sodium chloride 0.9% (plus) 50 ML 100 MG IV (03:28)
[2021-06-13] MEDS: dexamethasone 4 mg/mL INJ 6 MG IVP (03:28)
[2021-06-13] MEDS: ipratropium-albuterol 3 mL Neb INHALATION ×4 (03:44→20:04)
[2021-06-13 07:20] LABS: Basophils % 0.2 %; Hematocrit 40.4 % (42.0-52.0); Hemoglobin 13.4 g/dL (11.7-16.6); Lymphocytes # 0.6 10^3/uL (0.8-4.8); Mean Corpuscular HGB Conc 33.2 g/dL (30.0-36.0); Mean Corpuscular Hemoglobin 29.8 pg (28.0-34.0); Mean Corpuscular Volume 89.8 fL (80-94); Mean Platelet Volume 10.8 fL (7.4-10.4); Monocytes # 0.5 10^3/uL (0.2-0.9); Neutrophils # 2.95 10^3/uL (1.8-7.7); Neutrophils % 71.1 %; Nucleated Red Blood Cells % 0 %; Platelet Count 389 10^3/cmm (130-400); Red Cell Distribution Width 13.2 % (12.1-15.1); White Blood Count 4.2 10^3/uL (4.0-10.0)
[2021-06-13 07:58] LABS: Alanine Aminotransferase 248 U/L (0-41); Albumin Level 3.3 g/dL (3.5-5.2); Alkaline Phosphatase 99 IU/L (40-130); Anion Gap 19.2 (5-19); Aspartate Amino Transferase 175 U/L (0-40); Blood Urea Nitrogen 18 mg/dL (6-20); Calcium 8.6 mg/dL (8.5-10.5); Carbon Dioxide 23 mmol/L (22-29); Chloride 101 mmol/L (98-107); Globulin 3.4 g/dL (1.3-4.6); Glomerular Filtration Rate 122.5 mL/min (90-130); Glucose 112 mg/dL (65-115); Magnesium 2.1 mg/dL (1.7-2.3); Osmolality Calculated 291 mOsm/kg (285-295); Phosphorus 3.4 mg/dL (2.5-4.5); Potassium 4.2 mmol/L (3.5-5.1); Sodium 139 mmol/L (136-145); Total Bilirubin 0.3 mg/dL (0.15-1.2); Total Protein 6.7 g/dL (6.6-8.7)
[2021-06-13 08:37] LABS: Slide Review Slide Review Perform
[2021-06-13] MEDS: budesonide 0.5 mg/2 mL Neb INHALATION ×2 (09:28→19:27)
--- NOTE | 2021-06-13 09:49 | PC.CHAP ---
Pastoral Care Encounter/Spiritual Assessment Type of Contact [] Declined jig fitter visit [] Patient/Family/Request visit [] Outpatient visit [] Follow-up visit [] Physician referral [] Code/Alert [x] Routine visit [] Staff referral [] Actively dying [] Patient sleeping [] Family support [] [] Out of room [] Palliative care [] [] Receiving care in room [] Pre-surgical visit [] Trauma [] Long length of stay [] ICU visit [x] Other: covid Relational/Emotional Strength [] Patient feels connected with others/family/visitors/staff [] Distress [] Loneliness/isolation [] Abandonment Spirituality of Patient [] Person of Lana [] Attends Congregation of their Lana [] Believes in Prayer [] Reads Bible or Anglican materials [] There are Spiritual issues to be addressed Call Center Agent Interventions [x] Prayer [] Active listening [] Non-anxious presence [] Spiritual/emotional support [] Crisis/trauma care [] Spiritual counseling [] Bereavement support [] Provided bereavement packet [] Provided Bible/devotional materials [] Provided toy/stuffed animal, coloring book to patient or family member [] Provided Communion [] Anointing/[place] [] Salvation [x] Completed spiritual assessment [] Other: Impact on Illness or Injury [] Angry [] Fearful [] Anxious [] Often cries [] Exhaustion [] Unable to work [] Unable to attend evangelical [] Unable to walk/stand [] Unable to read [] Unable to drive [] Unable to eat/drink [] Unable to sleep [] Unable to be with family [] Patient intubated [] Other: Summary Time spent with patient
[2021-06-13] MEDS: famotidine 20 mg/2 mL INJ IVP ×2 (10:34→23:10)
--- NOTE | 2021-06-13 14:17 | PM.PN ---
Subjective Subjective: Interval history: This morning patient was seen, he is actually sitting up to the side of the bed, in his home clothes, he tells me that he is motivated to go home, knows that presently is not ready, but is quite anxious about when he can go home, no fevers, no chills, no cough Vitals/I&O/Wt Last Vital Signs Temp 97.9 F 06/13/21 11:56 Pulse 76 06/13/21 11:56 Resp 18 06/13/21 11:56 BP 128/62 06/13/21 11:56 Pulse Ox 98 06/13/21 11:56 06/12/21 06/13/21 06/13/21 22:59 06:59 14:59 Intake Total 340 / 340 530 / 870 Output Total 1100 / 1100 300 / 1400 Balance -760 / -760 230 / -530 Weight last 48 hrs Weight 94.755 kg Weight 96.162 kg Physical Exam Const: COMMON NORMALS: no acute distress and patient oriented x3 Resp: COMMON NORMALS: normal respiratory effort, No retractions, No use of accessory muscles and clear to auscultation bilaterally AUSCULTATION: clear to auscultation bilaterally Cardio: COMMON NORMALS: regular rate, regular rhythm, S1 normal heart sound present and S2 normal heart sound present RATE: regular rate RHYTHM: regular rhythm HEART SOUNDS: S1 normal heart sound present and S2 normal heart sound present GI: COMMON NORMALS: Normal to inspection, nondistended, normoactive bowel sounds present, Soft to palpation and non-tender PALPATION: Yes Soft to palpation Extremity: COMMON NORMALS: no pedal edema Neuro: COMMON NORMALS: patient oriented x3 Psych: COMMON NORMALS: mental status grossly normal Data : 06/13/21 05:58 06/13/21 05:58 A&P Assessment and plan (1) Respiratory failure: Status: Acute Qualifiers: Chronicity: acute Respiratory failure complication: hypoxia Qualified Code(s): J96.01 - Acute respiratory failure with hypoxia (2) Pneumonia due to 2019 novel coronavirus: Status: Acute Additional A&P Information Remdisivir 200mg iv x 1 followed by 100mg iv daily, dose for a 5 Status post 1 dose of tocilizumab 06/10/2021 dexamethasone 6mg IVP daily duoneb q6h, budesonide q12h Continue high flow, wean as tolerated empiric CTX and azithromycin Flutter valve/spirometer at bedside trend inflammatory markers including CRP, LDH, D dimer, Ferritin CTA PE to evalaute for PE negative for the same Encourage prone positioning, pulmonary toilet Klonopin as needed for anxiety Patient's decision-maker is his friend, Jaja Roes Plan for today, continue Decadron, remdesivir, Klonopin for anxiety, continue to clinically monitor, de-escalate oxygen DVt ppx: lovenox PUD ppx: protonix Attestations Medical Necessity Statement*: Patient requires hospitalization due to respiratory failure secondary COVID-19 Coding Level of Care Code Acute Servicer Travel Trailers for [facility] Fwd Diagnoses Respiratory failure J96.01 Chronicity: acute Respiratory failure complication: hypoxia Pneumonia due to 2019 novel coronavirus U07.1; J12.82
[2021-06-13] MEDS: remdesivir 100 MG in sodium chloride 0.9% (100 ml) 100 ML IV (18:12)
[2021-06-13] MEDS: enoxaparin 40 mg/0.4 mL Syringe SUBCUT (23:10)
[2021-06-14] VITALS (11 sets, daily range): BP systolic 113–128; BP diastolic 75–87; PULSE 74–102; RESP 16–22; TEMP 36.4–37.1; O2SAT 90–96
[2021-06-14] MEDS: ipratropium-albuterol 3 mL Neb INHALATION ×4 (02:04→20:32)
[2021-06-14] MEDS: dexamethasone 4 mg/mL INJ 6 MG IVP (04:38)
[2021-06-14] MEDS: cefTRIAXone 1,000 MG in sodium chloride 0.9% (plus) 50 ML 100 MG IV (04:39)
[2021-06-14 06:30] LABS: Basophils % 0.3 %; Hematocrit 41.8 % (42.0-52.0); Hemoglobin 13.5 g/dL (11.7-16.6); Lymphocytes # 1.1 10^3/uL (0.8-4.8); Lymphocytes % 18.9 %; Mean Corpuscular HGB Conc 32.3 g/dL (30.0-36.0); Mean Corpuscular Hemoglobin 29.4 pg (28.0-34.0); Mean Corpuscular Volume 91.1 fL (80-94); Mean Platelet Volume 11.1 fL (7.4-10.4); Monocytes # 0.8 10^3/uL (0.2-0.9); Monocytes % 13.2 %; Neutrophils # 3.92 10^3/uL (1.8-7.7); Nucleated Red Blood Cells % 0 %; Platelet Count 423 10^3/cmm (130-400); Positive M 1; Red Blood Count 4.59 10^6/uL (4.1-5.3); Red Cell Distribution Width 13.2 % (12.1-15.1)
--- NOTE | 2021-06-14 06:44 | PC.NURSE ---
Patient has rested well this shift. No complaints of pain. Patient did c/o shortness of breath once this AM after getting up to restroom. Patient did prone self and this nurse checked patient O2, found to be at 98%. Patient has remained on high flow nasal cannula 10L/min throughout the shift. Appropriate urine output, good intake.
[2021-06-14 07:40] LABS: Alanine Aminotransferase 188 U/L (0-41); Albumin Level 3.4 g/dL (3.5-5.2); Alkaline Phosphatase 89 IU/L (40-130); Aspartate Amino Transferase 92 U/L (0-40); Blood Urea Nitrogen 19 mg/dL (6-20); Calcium 8.1 mg/dL (8.5-10.5); Carbon Dioxide 21 mmol/L (22-29); Chloride 104 mmol/L (98-107); Globulin 2.4 g/dL (1.3-4.6); Glomerular Filtration Rate 122.5 mL/min (90-130); Glucose 77 mg/dL (65-115); Osmolality Calculated 287 mOsm/kg (285-295); Sodium 138 mmol/L (136-145); Total Bilirubin 0.3 mg/dL (0.15-1.2); Total Protein 5.8 g/dL (6.6-8.7)
[2021-06-14 07:44] LABS: Anion Gap 17.8 (5-19); Potassium 4.8 mmol/L (3.5-5.1)
[2021-06-14] MEDS: budesonide 0.5 mg/2 mL Neb INHALATION ×2 (09:29→20:31)
[2021-06-14] MEDS: famotidine 20 mg/2 mL INJ IVP ×2 (12:21→22:53)
[2021-06-14] MEDS: FUROsemide 10 mg/mL SDV 4mL 40 MG IVP (12:21)
--- NOTE | 2021-06-14 13:56 | PM.PN ---
Subjective Subjective: Interval history: Patient is doing well this morning, no fevers, no cough, he is down to 8 L Vitals/I&O/Wt Last Vital Signs Temp 97.5 F L 06/14/21 12:00 Pulse 93 06/14/21 12:00 Resp 18 06/14/21 12:00 BP 113/82 06/14/21 12:00 Pulse Ox 94 06/14/21 12:00 06/13/21 06/14/21 06/14/21 22:59 06:59 14:59 Intake Total 340 / 340 530 / 870 Output Total 1025 / 1025 450 / 1475 500 / 500 Balance -685 / -685 80 / -605 -500 / -500 Weight last 48 hrs Weight 94.755 kg Physical Exam Const: COMMON NORMALS: no acute distress and patient oriented x3 Resp: COMMON NORMALS: normal respiratory effort, No retractions, No use of accessory muscles and clear to auscultation bilaterally AUSCULTATION: clear to auscultation bilaterally Cardio: COMMON NORMALS: regular rate, regular rhythm, S1 normal heart sound present and S2 normal heart sound present RATE: regular rate RHYTHM: regular rhythm HEART SOUNDS: S1 normal heart sound present and S2 normal heart sound present GI: COMMON NORMALS: Normal to inspection, nondistended, normoactive bowel sounds present, Soft to palpation and non-tender PALPATION: Yes Soft to palpation Extremity: COMMON NORMALS: no pedal edema Neuro: COMMON NORMALS: patient oriented x3 Psych: COMMON NORMALS: mental status grossly normal Data : 06/14/21 04:20 06/14/21 04:20 A&P Assessment and plan (1) Respiratory failure: Status: Acute Qualifiers: Chronicity: acute Respiratory failure complication: hypoxia Qualified Code(s): J96.01 - Acute respiratory failure with hypoxia (2) Pneumonia due to 2019 novel coronavirus: Status: Acute Additional A&P Information Remdisivir 200mg iv x 1 followed by 100mg iv daily, dose for a 5, completed Status post 1 dose of tocilizumab 06/10/2021 dexamethasone 6mg IVP daily duoneb q6h, budesonide q12h Continue nasal cannula, wean as tolerated Doxycycline empirically 1 dose of Lasix today Flutter valve/spirometer at bedside trend inflammatory markers including CRP, LDH, D dimer, Ferritin CTA PE to evalaute for PE negative for the same Encourage prone positioning, pulmonary toilet Klonopin as needed for anxiety Patient's decision-maker is his friend, Jajaryan Rose Plan for today, continue Decadron, wean oxygen as tolerated, prepare for discharge in the next 24 hours DVt ppx: lovenox PUD ppx: protonix Attestations Medical Necessity Statement*: Patient requires hospitalization due to COVID-19 pneumonia Coding Level of Care Code Acute Field Pipe Lines 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
[2021-06-14] MEDS: doxycycline 100 mg Tablet PO (18:20)
[2021-06-14] MEDS: enoxaparin 40 mg/0.4 mL Syringe SUBCUT (22:53)
[2021-06-15] VITALS (7 sets, daily range): BP systolic 110–115; BP diastolic 63–78; PULSE 74–112; RESP 16–22; TEMP 36.3–36.8; O2SAT 88–95
--- NOTE | 2021-06-15 02:10 | PC.RESP ---
RT Shift Note Frequent safety and respiratory rounds continue. Orders completed as indicated. Patient monitored pre and post treatments throughout shift. Patient [Did] tolerate treatments appropriately. Condition [DidNotChange]. Patient and/or outside sales account representative educated on respiratory treatment and medications. Patient and/or outside sales account representative [ResponseToTeaching]. Will continue to monitor patient progress.
[2021-06-15] MEDS: dexamethasone 4 mg/mL INJ 6 MG IVP (04:32)
--- NOTE | 2021-06-15 06:38 | PC.NURSE ---
Shift Summary Patient has rested well this shift, no complaints of pain. Patient has maintained O2 sats on 8L high flow nasal cannula. No complaints.
[2021-06-15 07:32] LABS: Basophils % 0.2 %; Eosinophils % 0.2 %; Hemoglobin 14.1 g/dL (11.7-16.6); Lymphocytes # 1.5 10^3/uL (0.8-4.8); Lymphocytes % 17.5 %; Mean Corpuscular HGB Conc 32.8 g/dL (30.0-36.0); Mean Corpuscular Hemoglobin 29.6 pg (28.0-34.0); Mean Corpuscular Volume 90.3 fL (80-94); Mean Platelet Volume 10.9 fL (7.4-10.4); Monocytes # 0.8 10^3/uL (0.2-0.9); Monocytes % 9.8 %; Neutrophils # 5.74 10^3/uL (1.8-7.7); Neutrophils % 68.6 %; Nucleated Red Blood Cells % 0 %; Platelet Count 476 10^3/cmm (130-400); Red Blood Count 4.76 10^6/uL (4.1-5.3); Red Cell Distribution Width 13.1 % (12.1-15.1); White Blood Count 8.4 10^3/uL (4.0-10.0)
[2021-06-15 08:08] LABS: Alanine Aminotransferase 142 U/L (0-41); Albumin Level 3.7 g/dL (3.5-5.2); Alkaline Phosphatase 86 IU/L (40-130); Anion Gap 17.8 (5-19); Aspartate Amino Transferase 51 U/L (0-40); Blood Urea Nitrogen 21 mg/dL (6-20); Calcium 8.6 mg/dL (8.5-10.5); Carbon Dioxide 24 mmol/L (22-29); Chloride 100 mmol/L (98-107); Globulin 2.9 g/dL (1.3-4.6); Glomerular Filtration Rate 122.5 mL/min (90-130); Glucose 79 mg/dL (65-115); Osmolality Calculated 286 mOsm/kg (285-295); Potassium 4.8 mmol/L (3.5-5.1); Sodium 137 mmol/L (136-145); Total Bilirubin 0.4 mg/dL (0.15-1.2); Total Protein 6.6 g/dL (6.6-8.7)
[2021-06-15] MEDS: budesonide 0.5 mg/2 mL Neb INHALATION (08:36)
[2021-06-15] MEDS: ipratropium-albuterol 3 mL Neb INHALATION ×2 (08:36)
[2021-06-15] MEDS: doxycycline 100 mg Tablet PO (09:34)
--- NOTE | 2021-06-15 10:37 | P.DS_ITS ---
Discharge Providers Date of Admission: 06/10/21 03:59 Date of Discharge: June 15, 2021 Attending Provider at Admission: Daya Galvan MD Attending Provider at Discharge: Lee Vega MD Diagnoses at Discharge Discharge Diagnosis (1) Respiratory failure: Status: Acute Qualifiers: Chronicity: acute Respiratory failure complication: hypoxia Qualified Code(s): J96.01 - Acute respiratory failure with hypoxia (2) Pneumonia due to 2019 novel coronavirus: Status: Acute Reason for Visit Reason for Visit: Covid + In Covid Room Hospital Course Hospital Course This is a 46-year-old male with no significant past medical history, who presents to [facility] due to complaints of cough, shortness of breath, fevers. Patient was admitted to [facility] for acute hypoxic respiratory failure secondary to severe COVID-19 pneumonia, requiring ICU admission, placed on remdesivir, Decadron, Actemra, broad-spectrum antibiotic therapy, oxygen therapy, and clinically monitored. Patient clinically improved, moved to the Covid unit, continue to clinically improve. On discharge he remained afebrile, down to 5 L nasal cannula, -1 L. On discharge patient was advised to continue to self isolate for at least 28 days from symptom onset, socially distance, handwashing, facemask. Advised to follow-up with primary care provider about Covid vaccine within a month. Strongly advised for flu vaccine. Patient was advised to monitor for fevers, chills, worsening shortness of breath In terms of hypercoagulability prophylaxis for COVID-19, patient was quite mobile during his hospitalization, his risk of DVT and pulmonary emboli are quite low, thus after shared decision making, and discussion of the risk and benefits, we have decided not to pursue anticoagulation on discharge. However I advised him that low risk does not mean no risk, if he were to have signs of a DVT or PE call 911 or go to the emergency room. Physical Exam Const: COMMON NORMALS: no acute distress and patient oriented x3 Resp: COMMON NORMALS: normal respiratory effort, No retractions, No use of accessory muscles and clear to auscultation bilaterally AUSCULTATION: clear to auscultation bilaterally Cardio: COMMON NORMALS: regular rate, regular rhythm, S1 normal heart sound present and S2 normal heart sound present RATE: regular rate RHYTHM: regular rhythm HEART SOUNDS: S1 normal heart sound present and S2 normal heart sound present GI: COMMON NORMALS: Normal to inspection, nondistended, normoactive bowel sounds present, Soft to palpation and non-tender PALPATION: Yes Soft to palpation Extremity: COMMON NORMALS: no pedal edema Neuro: COMMON NORMALS: patient oriented x3 Psych: COMMON NORMALS: mental status grossly normal Discharge Data Data Completed and Pending: Completed Studies During Hospitalization Category Date Time Status CT angio chest PE protcl [id number] Urge nt Cat Scan 06/09/21 23:02 Completed XR chest 1V aisha ble [id number] Routine Exams 06/11/21 07:00 Completed XR chest 1V aisha ble [id number] Stat Exams 06/09/21 18:46 Completed Pending at discharge Category Date Time Status Complete Blood Co unt w/Auto AM LABS Lab 06/16/21 04:00 Ordered Comprehensive Met abolic Panel AM LA BS Lab 06/16/21 04:00 Ordered Labs from last 24 hours 06/15/21 06/15/21 05:16 05:16 WBC 8.4 RBC 4.76 Hgb 14.1 Hct 43.0 MCV 90.3 MCH 29.6 MCHC 32.8 RDW 13.1 Plt Count 476 H MPV 10.9 H Neut % (Auto) 68.6 Lymph % (Auto) 17.5 [place] % (Auto) 9.8 Eos % (Auto) 0.2 Baso % (Auto) 0.2 Neut # (Auto) 5.74 Lymph # (Auto) 1.5 [place] # (Auto) 0.8 Eos # (Auto) 0.0 Baso # (Auto) 0.0 Nucleated RBC % (a uto) 0 Nucleated RBCs # 0.0 Sodium 137 Potassium 4.8 Chloride 100 Carbon Dioxide 24 Anion Gap 17.8 BUN 21 H Creatinine 0.7 GFR Calculation 122.5 Glucose 79 Calculated Osmolal ity 286 Calcium 8.6 Total Bilirubin 0.4 AST 51 H ALT 142 H Alkaline Phosphata se 86 Total Protein 6.6 Albumin 3.7 Globulin 2.9 Vitals: Last Vital Signs Temp 98.2 F 06/15/21 08:00 Pulse 112 H 06/15/21 08:41 Resp 18 06/15/21 08:36 BP 110/63 06/15/21 08:00 Pulse Ox 95 06/15/21 08:36 Discharge Plan Discharge Patient Disposition: Home Condition: Stable Prescriptions: New doxycycline hyclate 100 mg capsule 100 mg PO BID 5 Days Qty: 10 RF: 0 fluticasone propion-salmeterol [Advair Diskus] 250-50 mcg/dose blister with device 1 inh inhalation BID Qty: 60 RF: 0 zinc 50 mg tablet 50 mg PO DAILY 30 Days Qty: 30 RF: 0 albuterol sulfate 90 mcg/actuation HFA aerosol inhaler 1 inh inhalation Q6H PRN (Reason: shortness of breath or wheezing) Qty: 8.5 RF: 0 Continued Tylenol 325 mg Tablet 325 mg PO QID PRN (Reason: Pain) RF: 0 Vitamin C 500 mg Tablet 500 mg PO DAILY RF: 0 ibuprofen 200 mg Tablet 200 mg PO Q6H PRN (Reason: Pain) RF: 0 Elderberry 200 mg Capsule 200 mg PO DAILY RF: 0 Discharge Orders: Discharge Order (Routine); Ordered 06/15/21 Ordered By: Lee Vega Referrals: Avtar Lawson MD [Physician] - 2 weeks Discharge Diet: Regular Discharge Activity: Resume usual activity Patient Instructions: Opioid Safety Activity Restrictions/Additional Instructions: -Please continue to self isolate, socially distance, facemask, hand wash -At least 28 days from symptom onset -Use albuterol, as needed, Advair, -Please discuss with primary care about getting flu vaccine -Please discuss with primary care about getting Covid vaccine within a month -Continue to be mobile at home -If you develop signs of a blood clot, calf pain, calf swelling, sudden onset of shortness of breath, bloody cough go to the emergency room or call 911 -Wean oxygen as tolerated through primary care Discharge Attestations Time Spent in Discharge Care*: less than 30 min Quality Metrics Clinical Quality Measures During this hospital stay, did patient experience: None Coding Level of Care Code Acute Chg FW DC note Diagnoses Respiratory failure J96.01 Chronicity: acute Respiratory failure complication: hypoxia Pneumonia due to 2019 novel coronavirus U07.1; J12.82
--- NOTE | 2021-06-18 12:26 | PC.SOCIAL ---
follow up call made with patient. patient continuing to use O2 at 3L [place]. New medications picked up from the pharmacy. Virtual appointment made with Dr. Lawson for 07-01-21 @ [id number]. Patient had already made his own follow up appointment with Dr. Hahn for 06-28. patient is aware quarantine end date is 06-21.
== END 2021-06-15 13:57 | disposition home or self-care (01) | DRG 177 ==
LOC: ER 21:56 → ICU 06-10 06:46 → MS 2A 06-11 13:18
PROVIDERS: Admitting Provider Student in an Organized Health Care Education/Training Program; Emergency Provider Emergency Medicine; Visit Provider Family Medicine
DX: U07.1 COVID-19 (principal); J12.82 Pneumonia due to coronavirus disease 2019; J96.01 Acute respiratory failure with hypoxia; E87.3 Alkalosis; E87.6 Hypokalemia
CPT/HCPCS: 36415; 36600; 71045; 71275; 80053; 82550; 82803; 83605; 83615; 83735; 83880; 84100; 84145; 84484; 85025; 85378; 85610; 86140; 87040; 93005; 94640; 96365; 96372; 96375; 99285; J0456; J0696; J1100; J1650; J1940; J3262; J3490; J7050; J7626; Q9967